=== PATIENT | female | born 1990 | race Two or more races ===

== ENCOUNTER 2016-10-22 01:38 | Emergency (ER) | payer OTHER ==
--- NOTE | ~2016-10-22 | CT128 ---
[facility] A Service of [facility] & [facility] RADIOLOGY TEXT RESULTS PATIENT: GRUPO ABREU LOCATION: [facility] : 88 UNIT #: [id number] AGE: [address]: Casimiro Rowe DO SEX: F ORDER DR: [id number] [facility] [address] [place], [place] [address] [id number] MR#: [id number] Acc #: [id number] NAME: GRUPO ABREU. : 1990 SEX: F STUDY DATE/TIME: 10/22/2016 04:50 UNIT: [facility] ROOM: STUDY DESCRIPTION: CT Upper Ext Rt W Cont Attending Physician: Casimiro Rowe D.O. Ordering Physician: Casimiro Rowe D.O. [facility] RE[facility] This report is preliminary unless electronic signature is present EXAM CT right upper extremity, 10/22 at 04:50. INDICATIONS Arm swelling and discoloration. Soft tissue swelling for 2 days. TECHNIQUE Axial images were obtained through the right upper extremity from the shoulder through the elbow following IV contrast administration. Multiplanar reformats were obtained. No comparison. This CT exam was performed with one or more of the following radiation dose reduction techniques: automatic exposure control, adjustment of mA and/or kV according to patient size, and iterative reconstruction. FINDINGS The bones are normal. No fracture or malalignment is seen. No abnormal contrast enhancement is seen. No fluid collections are identified to suggest abscess. Deep to the gel cap skin marker in the posterior upper extremity above the elbow, there is some minimal subcutaneous fat stranding. This is entirely nonspecific. It is not a fluid collection. It is probably an area of inflammation or perhaps even a small hematoma. Correlate with physical exam findings. Right upper extremity is otherwise normal. This is not a CT angiogram and the vascularity is not well evaluated. IMPRESSION 1. The bones are normal. 2. No fluid collection or evidence of abscess. 3. Deep to the gel cap skin marker in the posterior left upper arm just above the elbow, there is an area of poorly defined subcutaneous fat stranding, which is small. This is nonspecific, but could reflect an area of inflammation or perhaps even a small hematoma. It is not [facility] A Service of [facility] RADIOLOGY TEXT RESULTS PATIENT: GRUPO ABREU LOCATION: [facility] : [birth year] UNIT #: [id number] AGE: [address]: Casimiro Rowe DO SEX: F ORDER DR: clearly a fluid collection or clearly solid mass. Continued clinical followup is suggested. The rest of the right upper extremity is normal. Dictated by... Chava Colindres Jr., M.D. THIS IS AN ELECTRONICALLY VERIFIED REPORT Chava Colindres Jr., M.D. at 10/22/2016 11:28 AM SHANNAN/geo TD: 10/22/2016 10:23 JOB #: [id number] MEDICAL IMAGING REPORT Page 1 of 1 COPY
[~2016-10-22 01:38] MED LIST: ACETAMINOPHEN PO; ALLERGY RELIEF10 M1 PO; FERROUS SULFATE PO; MAALOX SUSPENSI30 ML PO; PRENATAL MULITV1 TAB PO
[2016-10-22 03:41] LABS: BASOPHIL% 0.3 % (0-2.5); EOSINOPHIL# 0.2 X10e3 (0-0.7); EOSINOPHIL% 1.9 % (0.0-7.0); HEMATOCRIT 37.8 % (35.0-45.0); HEMOGLOBIN 12.8 gm/dL (12.0-16.0); LYMPHOCYTE# 3.3 X10e3 (1.0-3.5); LYMPHOCYTE% 33.9 % (17.0-45.0); MEAN CELL VOLUME 90.9 FL (83-96); MEAN CORPUSCULAR HEMOGLOBIN 30.8 PG (28-34); MEAN CORPUSCULAR HGB CONC 33.9 g/dL (30-36); MEAN PLATELET VOLUME 9.7 FL (6.5-11.5); MONOCYTE# 0.5 X10e3 (0-1.0); MONOCYTE% 5.4 % (3.0-12.0); NEUTROPHIL# 5.8 X10e3 (1.5-7.1); NEUTROPHIL% 58.5 % (40-75); PLATELET COUNT 267 X10e3 (140-420); RED BLOOD COUNT 4.16 X10e (3.90-5.30); RED CELL DISTRIBUTION WIDTH 12.9 % (11.0-15.5); WHITE BLOOD COUNT 9.8 X10e3 (4.0-10.5)
[2016-10-22 03:42] LABS: DIFF IND NO
[2016-10-22 04:11] LABS: BUN/CREATININE RATIO 28.33; CALCIUM SERUM 8.6 mg/dL (8.4-10.2); CREATININE SERUM 0.6 mg/dL (0.6-1.4); GLOM FILT RATE Estimated 124.9 mL/min (>60); POTASSIUM 3.5 mmol/L (3.5-5.1)
== END 2016-10-22 06:05 | disposition home or self-care (01) ==
LOC: CED 01:38
PROVIDERS: Emergency Medicine
DX: M79.89 Other specified soft tissue disorders (principal); Z88.8 Allergy status to other drugs, medicaments and biological substances
CPT/HCPCS: 36415; 73201; 80048; 84703; 85025; 85379; 94640; 99284; Q9967